=== PATIENT | female | born 1995 | race African-American/Black ===

== ENCOUNTER 2021-12-29 09:23 | Day surgery (SDC) | payer OTHER, SELFPAY ==
[2021-12-29] VITALS (8 sets, daily range): BP systolic 95–108; BP diastolic 49–69; PULSE 65–88; RESP 16–18; TEMP 36.4–37; O2SAT 99–100; BMI 41.3
--- NOTE | ~2021-12-29 | FL_ITS ---
EXAMINATION: FL-GUIDED LUMBAR PUNCTURE CLINICAL INFORMATION: Headache. COMPARISON: None TECHNIQUE: Following explaining fluoroscopy-guided lumbar puncture procedure, benefits and risk, a written consent was obtained. Patient was placed prone on fluoroscopy table and low back area was cleaned and draped in the usual sterile manner. 1% lidocaine was injected at puncture site. A 22-gauge spinal needle was then inserted from a left-sided approach at the L4-L5 disc level and advanced intrathecally. After obtaining CSF return, the patient was quickly placed in left lateral decubitus view and opening CSF pressure was obtained. Fluid was then collected in 4 test tubes. Stylet was reintroduced and needle withdrawn and complete hemostasis achieved at puncture site. Sterile Band-Aid applied postprocedure. Patient tolerated the procedure extremely well. FINDINGS: On visualized single image, there are normal L3, L4 and L5 vertebral heights. The SI joints are symmetrical. Fluoroscopy-guided placement of needle at the L4-L5 disc level. The opening CSF pressure measured 33 cm of water. Approximately 14 mL of clear CSF fluid was collected in 4 test tubes and sent to lab as per referring physician's orders. FLUOROSCOPY TIME: 0.5 minutes DOSE AREA PRODUCT: 7.226 uGy-m2 (microgray-meter squared) FL/FL guided lumbar puncture LP IMPRESSION: Successful ultrasound-guided lumbar puncture performed at the L4-L5 disc level. The CSF pressure is elevated measuring 33 cm/water. Clear CSF was collected in 4 test tubes and sent to lab.
[2021-12-29 10:12] LABS: MANUAL DIFF FLAG NO
[2021-12-29 10:16] LABS: Basophils Percent Auto 0.5 % (0-2); Eosinophils Absolute Auto 0.2 X10*3/uL (0.0-0.4); Eosinophils Percent Auto 2.5 % (0-4); Hematocrit 37.4 % (37.0-47.0); Hemoglobin 12.6 g/dl (12.0-16.0); Imm Gran Abs Auto 0.02 X10*3/uL (0.00-0.03); Imm Gran Pct Auto 0.3 % (0.0-0.4); Lymphocytes Absolute Auto 2.8 X10*3/uL (1.2-4.9); Lymphocytes Percent Auto 46.3 % (20-40); Mean Corpuscular HGB Conc 33.7 g/dl (31.0-35.0); Mean Corpuscular Hemoglobin 24.9 pg (27.0-33.0); Mean Corpuscular Volume 73.8 fL (80.0-98.0); Mean Platelet Volume 10.6 fL (9.4-12.3); Monocytes Absolute Auto 0.6 X10*3/uL (0.1-1.2); Monocytes Percent Auto 10.1 % (2-11); Neutrophils Absolute Auto 2.4 x10*3/uL (2.0-8.3); Neutrophils Percent Auto 40.3 % (45-73); Platelet Count 264 X10*3/uL (160-400); Red Blood Count 5.07 X10*6/uL (4.20-5.50); Red Cell Distribution Width 13.4 % (11.0-16.0)
[2021-12-29 10:20] LABS: UPreg QC Valid YES; Urine Pregnancy NEGATIVE (NEGATIVE)
[2021-12-29 10:24] LABS: Prothrombin Time 11.9 SEC (9.9-13.0)
[2021-12-29 10:27] LABS: Partial Thromboplastin Time 38.7 SEC (24.1-38.0)
[2021-12-29 12:38] LABS: Glucose CSF 60 mg/dL; Total Protein CSF 29.6 mg/dL (15-45)
[2021-12-29 12:43] LABS: CSF Appearance Clear, Colorless; CSF Tube # 1
[2021-12-29 13:24] LABS: Appearance CSF CLEAR; CSF Tube # 3; Color CSF COLORLESS; Red Blood Cell CSF 4 MM*3; White Blood Cell CSF 0 MM*3
== END 2021-12-29 15:00 | disposition home or self-care (01) ==
PROVIDERS: Psychiatry & Neurology Neurology; Radiology Diagnostic Radiology; Visit Provider Radiology Diagnostic Radiology
PROC: 009U3ZZ Drainage of Spinal Canal, Percutaneous Approach (ICD-10-PCS; CPT 62270; principal; 2021-12-29 11:00)
DX: G93.2 Benign intracranial hypertension (principal); G43.909 Migraine, unspecified, not intractable, without status migrainosus; G44.209 Tension-type headache, unspecified, not intractable; M54.50 Low back pain, unspecified; Z79.899 Other long term (current) drug therapy; Z96.1 Presence of intraocular lens; G47.00 Insomnia, unspecified
CPT/HCPCS: 36415; 62328; 81025; 82945; 84157; 85025; 85610; 85730; 87015; 87070; 87205; 89051

== ENCOUNTER 2022-11-19 12:36 | Emergency (ER) | payer OTHER, SELFPAY ==
[2022-11-19 12:45] VITALS: BP 148/60; PULSE 65; RESP 18; TEMP 36.6; O2SAT 98; BMI 43.9
--- NOTE | 2022-11-19 12:46 | ED.RECABL ---
HPI - Recheck/Abnormal Lab/Rx General Chief Complaint: General Medical Stated Complaint: told by [place] [facility] to get bloodwork done Time Seen by Provider: 11/19/22 15:59 Source: patient Mode of arrival: ambulatory Limitations: no limitations History of Present Illness HPI narrative: 26yoF who was seen at [facility] on 's day on 11/17/2021 for sore throat sent home on amoxicillin reports she is feeling better although [facility] called her back today reported that she should go to the closest ER for further evaluation treatment as she had abnormal bacteria on her blood per patient.? She reports her symptoms are improved denies any symptoms at this time. MD complaint: abnormal lab Initial visit (ago): day(s) (2 at [facility] she was seen see above) Symptoms since prior visit: no new symptoms and improved Context: called for abnormal lab result Associated symptoms: none Treatments prior to arrival: given antibiotics on (11/17/2021 and taking as prescribed per patient) Related Data Allergies Allergy/AdvReac Type Severity Reaction Status Date / Time No Known Allergies Allergy Verified 12/29/21 09:55 Review of Systems Review of Systems: Constitutional : No Weight loss, No Fever, No Chills, No Night Sweats, No Fatigue, No Malaise ENT/Mouth : No Hearing loss, No Ear Pain, No Nasal Congestion, No Sinus Pain, No Hoarseness, + improving sore throat, No Rhinorrhea, No Swallowing Difficulty Eyes: No Eye Pain, No Swelling, No Redness, No Foreign Body, No Discharge, No Vision Changes Cardiovascular : No Chest Pain, No SOB, No Dyspnea on Exertion, No Orthopnea, No Edema, No Palpitations Respiratory : No Cough, No Sputum, No Wheezing, No Smoke Exposure, No Dyspnea Gastrointestinal : No Nausea, No Vomiting, No Diarrhea, No Constipation, No abdominal Pain, No Hematochezia, No Melena Genitourinary : no irregular bleeding, No Dysuria, No Urinary Frequency, No Hematuria, No Urinary Incontinence, No Urgency, No Flank Pain, No Urinary Flow Changes, No Hesitancy Musculoskeletal : No joint pain, No Myalgias, No Joint Swelling Skin : No Skin Lesions, No rash Neuro : No Weakness, No Numbness, No Paresthesias, No Loss of Consciousness, No Dizziness, No Headache Psych : No Anxiety/Panic, No Depression, No SI/HI/AH/VH, No Social Issues, Heme/Lymph: No Bruising, No Bleeding,No Lymphadenopathy Endocrine : No Polyuria, No Polydipsia, No Temperature Intolerance Yes all other systems are reviewed and are negative [facility] Past Medical History Attestation statement: The following information was validated with the patient. Source: old records reviewed and nursing notes reviewed Social History Social History Advance Directives: No Physical Exam Vital Signs: Vital Signs: Last Vital Signs Temp 98 F 11/19/22 12:45 Pulse 65 11/19/22 12:45 Resp 18 11/19/22 12:45 BP 148/60 H 11/19/22 12:45 Pulse Ox 98 11/19/22 12:45 O2 Del Method 11/19/22 12:45 BMI result Body Mass Index 43.9 Vital signs reviewed. Blood pressure normal. Pulse normal. Respiration normal. Oxygen normal. Temperature normal. Appearance: Alert. Oriented X3. No acute distress. Head: Normal external exam. Normocephalic. Atraumatic. Eyes: PERRLA. EOMI. Conjunctiva and sclera normal. Eyelids normal. ENT: EAC normal. TM's Normal. Pharynx normal. Uvula midline. Moist mucous membranes. No lesions/ulcerations or masses noted on the tongue. Normal voice. No trismus noted. No drooling noted. No muffled voice noted. Neck: Normal inspection. Neck supple. FROM. No adenopathy. Thyroid Normal. No meningeal signs. CVS: Normal heart rate and rhythm. Heart sound normal. Pulses normal throughout. No murmurs/rales/gallops. Respiratory: No respiratory distress. Painless inspiration. Breath sounds normal. No wheezes/rales/rhonchi noted. Chest nontender. No accessory muscle usage noted or decreased air movement noted. Abdomen: Soft and nontender. Back: Full range of motion noted. Nontender. Skin: Skin warm and dry. Normal skin color. Normal skin turgor. No rashes/lesions/lacerations noted. Extremities: Extremities exhibit normal range of motion and nontender. Neuro: Oriented X 3. No motor deficit. No sensory deficit. Reflexes normal. Normal steady gait. No focal neuro deficits noted. CN's II-XII intact bilaterally? Vascular: + radial pulses. Normal cap refill. No cyanosis noted to upper extremity nails Course Course Course Narrative: RAVI-12:50PM - 26yoF who was seen at [facility] on on 11/17/2021 for sore throat sent home on amoxicillin reports she is feeling better although [facility] called her back today reported that she should go to the closest ER for further evaluation treatment as she had abnormal bacteria on her blood per patient. She reports her symptoms are improved denies any symptoms at this time. On exam patient appears well. Vital signs are stable within normal limits. She is afebrile. Patient reports she is a [employer] worker and has to be out of here and cannot be admitted at this time. And reports she feels better therefore no need for admission at this time. Plan: Will obtain labs, strep culture, COVID/RSV/flu swab, UA and repeat blood cultures. Patient will be sent back to the waiting room to be evaluated in [facility]. Reevaluation(s) Reevaluation #1: Patient with leukocytosis of 17,000. Otherwise all other labs were normal. Patient was still positive for strep. Although she eloped before all her results return. Medical Decision Making Lab Data 11/19/22 13:34 11/19/22 13:34 Labs: Lab Results 11/19/22 11/19/22 11/19/22 Range/Units 13:34 13:34 13:34 WBC 17.2 H (4.8-10.8) X10*3/uL RBC 5.22 (4.20-5.50) X10*6/uL Hgb 13.0 (12.0-16.0) g/dl Hct 38.5 (37.0-47.0) % MCV 73.8 L (80.0-98.0) fL MCH 24.9 L (27.0-33.0) pg MCHC 33.8 (31.0-35.0) g/dl RDW 13.7 (11.0-16.0) % Plt Count 291 (160-400) X10*3/uL MPV 10.4 (9.4-12.3) fL Immature Gran % (Auto) 0.5 H (0.0-0.4) % Neut % (Auto) 63.4 (45-73) % Lymph % (Auto) 27.5 (20-40) % [place] % (Auto) 7.8 (2-11) % Eos % (Auto) 0.4 (0-4) % Baso % (Auto) 0.4 (0-2) % Lymph # (Auto) 4.7 (1.2-4.9) X10*3/uL [place] # (Auto) 1.3 H (0.1-1.2) X10*3/uL Eos # (Auto) 0.1 (0.0-0.4) X10*3/uL Baso # (Auto) 0.1 (0.0-0.2) X10*3/uL Abs Immat Gran (auto) 0.09 H (0.00-0.03) X10*3/uL Absolute Neuts (auto) 10.9 H (2.0-8.3) x10*3/uL Absolute Nucleated RBC 0.000 (0.0-0.012) X10*3/uL Nucleated RBC % (auto) 0.0 (0.0-0.2) /100WBC Sodium 143 (135-145) mmol/L Potassium 4.1 (3.3-5.1) mmol/L Chloride 108 (96-108) mmol/L Carbon Dioxide 25 (22-29) mmol/L Anion Gap 14 (12-20) BUN 12 (9-16) mg/dL Creatinine 0.78 (0.5-1.4) mg/dL Estim Creat Clear Calc 125.9 Estimated GFR > 60 Random Glucose 97 (60-115) mg/dL Calcium 9.3 (8.4-10.2) mg/dL Magnesium 2.0 (1.6-2.6) mg/dL Total Bilirubin 0.2 (0.0-1.0) mg/dL AST 14 (5-31) U/L ALT 13 (0-31) U/L Alkaline Phosphatase 54 (39-117) U/L Total Protein 7.2 (6.5-8.0) g/dL Albumin 3.9 (3.5-5.0) g/dL S. pyogenes GrpA CURTIS Positive A (Negative) Discharge Plan Discharge Clinical Impression: Acute bacterial pharyngitis Patient Disposition: Elopement Interventions: ED Discharge Assessment Last Done: 11/19/22 16:06 Discharge Date/Time: 11/19/22 16:07
[2022-11-19 13:40] LABS: MANUAL DIFF FLAG NO
[2022-11-19 13:42] LABS: Basophils Absolute Auto 0.1 X10*3/uL (0.0-0.2); Basophils Percent Auto 0.4 % (0-2); Eosinophils Absolute Auto 0.1 X10*3/uL (0.0-0.4); Eosinophils Percent Auto 0.4 % (0-4); Hematocrit 38.5 % (37.0-47.0); Imm Gran Abs Auto 0.09 X10*3/uL (0.00-0.03); Imm Gran Pct Auto 0.5 % (0.0-0.4); Lymphocytes Absolute Auto 4.7 X10*3/uL (1.2-4.9); Lymphocytes Percent Auto 27.5 % (20-40); Mean Corpuscular HGB Conc 33.8 g/dl (31.0-35.0); Mean Corpuscular Hemoglobin 24.9 pg (27.0-33.0); Mean Corpuscular Volume 73.8 fL (80.0-98.0); Mean Platelet Volume 10.4 fL (9.4-12.3); Monocytes Absolute Auto 1.3 X10*3/uL (0.1-1.2); Monocytes Percent Auto 7.8 % (2-11); Neutrophils Absolute Auto 10.9 x10*3/uL (2.0-8.3); Neutrophils Percent Auto 63.4 % (45-73); Platelet Count 291 X10*3/uL (160-400); Red Blood Count 5.22 X10*6/uL (4.20-5.50); Red Cell Distribution Width 13.7 % (11.0-16.0); White Blood Count 17.2 X10*3/uL (4.8-10.8)
[2022-11-19 13:49] LABS: IDNOW Serial# 6674DD1D; Strep A Nucleic Acid Positive (Negative)
[2022-11-19 14:08] LABS: Alanine Aminotransferase 13 U/L (0-31); Albumin Level 3.9 g/dL (3.5-5.0); Alkaline Phosphatase 54 U/L (39-117); Anion Gap 14 (12-20); Aspartate Amino Transferase 14 U/L (5-31); Bilirubin Total 0.2 mg/dL (0.0-1.0); Blood Urea Nitrogen 12 mg/dL (9-16); Calcium 9.3 mg/dL (8.4-10.2); Carbon Dioxide 25 mmol/L (22-29); Chloride 108 mmol/L (96-108); Creatinine Clr Calc Pharmacy 125.9; Estimated Glomerular Filt Rate > 60; Glucose Random 97 mg/dL (60-115); Potassium 4.1 mmol/L (3.3-5.1); Sodium 143 mmol/L (135-145); Total Protein 7.2 g/dL (6.5-8.0)
== END 2022-11-19 16:07 | disposition left against medical advice (07) ==
PROVIDERS: Physician Assistant Medical; Emergency Provider Emergency Medicine
DX: J02.8 Acute pharyngitis due to other specified organisms (principal); Z79.899 Other long term (current) drug therapy
CPT/HCPCS: 80053; 83735; 85025; 87651; 99282; 99283

== ENCOUNTER 2023-03-19 16:06 | Emergency (ER) | payer OTHER, SELFPAY ==
[2023-03-19 16:15] VITALS: BP 140/74; PULSE 95; RESP 18; TEMP 36.8; O2SAT 98; BMI 53.0
--- NOTE | 2023-03-19 16:19 | ED_ITS ---
HPI - General Adult General Chief complaint: Ear Problems Stated complaint: ?Ear infection Time Seen by Provider: 03/19/23 16:17 Source: patient Mode of arrival: ambulatory Limitations: no limitations History of Present Illness HPI narrative: Patient is a 27 year old assigned female at with a history of recent left ear infection presenting to the emergency department today with right ear pain. Patient states that she was recently seen and treated for a left sided ear infection however, now her right ear is hurting her. Patient denies any dizziness, lightheadedness, abdominal pain, nausea, vomiting, fever, chills, blurry vision, double vision, loss of vision, chest pain, difficulty breathing, shortness of breath, back pain, night sweats, pain with urination, increased urinary frequency, increased urinary urgency, blood in her urine or stool, syncope or a near syncopal episode, recent trauma or falls, bowel incontinence, bladder incontinence, bowel retention, bladder retention, or any other complain ts at this time. Onset (ago): day(s) Location: right (ear) Radiation: non-radiation Severity: mild Severity scale (1-10): 2 Quality: aching and dull Pain Consistency: constant Relieving factors: none Exacerbating factors: none Associated symptoms: denies other symptoms Treatments prior to arrival: none Related Data Allergies Allergy/AdvReac Type Severity Reaction Status Date / Time No Known Allergies Allergy Verified 12/29/21 09:55 Review of Systems Constitutional: Constitutional: Reports no additional constitutional complaints, Denies chills, Denies fever(s) and Denies night sweats Eyes: Eyes: Reports no additional eye complaints, Denies blurry vision, Denies change in vision, Denies diplopia, Denies eye discharge, Denies loss of vision and Denies eye pain ENT: Denies dizziness Comments: right ear pain Cardiovascular: Cardiovascular: Reports no additional cardiovascular complaints, Denies chest pain, Denies lightheadedness, Denies Loss of Consciousness and Denies dyspnea Respiratory: Respiratory: Reports no additional respiratory complaints and Denies dyspnea Gastrointestinal: Gastrointestinal: Reports no additional gastrointestinal complaints, Denies abdominal pain, Denies melena, Denies hematochezia, Denies change in bowel habits and Denies change in stool character Genitourinary: Genitourinary: Denies hematuria, Denies urinary frequency, Denies dysuria, Denies urinary incontinence, Denies urinary hesitancy and Denies urinary urgency Musculoskeletal: Musculoskeletal: Reports no additional musculoskeletal complaints, Denies numbness and Denies tingling Neurologic: Denies dizziness, Denies loss of vision, Denies numbness and Denies tingling Psychiatric: Psychiatric: Reports no additional psychiatric complaints Endocrine: Endocrine: Reports no additional endocrine complaints Hematologic/Lymphatic: Hematologic/Lymphatic: Reports no additional hematologic/lymphatic complaints Allergic/Immunologic: Allergic/Immunologic: Reports no additional allergic/immunologic complaints PMFSH Past Medical History Attestation statement: The following information was validated with the patient. Source: old records reviewed and nursing notes reviewed Social History Social History Advance Directives: No Advance Directives Information Provided: No Physical Exam ED Vital Signs: Vital Signs - 24 hr 03/19/23 16:15 Temperature 98.3 F Pulse Rate 95 Respiratory Rate 18 Blood Pressure 140/74 H Pulse Oximetry 98 Oxygen Delivery Method Room Air BMI result Body Mass Index 53.0 Const General: cooperative, no acute distress, alert and awake Nutritional Appearance: well nourished Orientation/consciousness: patient oriented x3 Limitations: no limitations HENMT Head: Yes normal to inspection and Yes atraumatic Ears: hearing grossly normal bilaterally, external ears normal and TM's normal bilaterally General nose exam: Normal external nose present, no nasal discharge noted and no epistaxis Face and sinus: Yes normal facial exam, No abrasion and No laceration Mouth: Normal oral and palatal mucosa present, no drooling and no muffled voice Eyes General: appearance normal, both eyes and all related structures Periorbital: periorbital findings normal Eyelids: Yes eyelids normal Conjunctivae: conjunctivae normal Pupils: Equal, round and reactive pupils present EOM: EOMs intact bilaterally Neck Neck: Yes normal visual inspection, Yes full ROM and Yes no lymphadenopathy Chest Chest palpation & inspection: normal inspection of the chest Resp Effort & Inspection: normal respiratory effort and able to speak in complete sentences GI Inspection: Yes normal to inspection Neuro General: patient oriented x3 and moves all extremities Cranial nerves: Yes Equal, round and reactive pupils present Cognition (Neuro): normal cognition Motor exam (neuro): 5/5 motor strength present throughout Sensory Exam: Normal double simultaneous stimulation for sensation Coordination: [id number] test normal Extrem General: Yes normal to inspection, Yes full ROM and Yes capillary refill normal Psych Appearance: grossly normal Mental Status: mental status grossly normal Affect: normal affect Attitude: cooperative Thought process: Normal thought process present Thought content: Normal thought content present Insight: Good insight present (Psych) Medical Decision Making Medical Decision Making MDM Narrative: Patient is a 27 year old assigned female at with a history of recent left ear infection presenting to the emergency department today with right ear pain. Patient's physical exam was unremarkable. I explained my physical exam findings to the patient . I answered all questions asked by the patient. I stressed the importance of the patient taking her medication as prescribed. I stressed the importance of the patient following up with her primary care provider and if her symptoms continue after completion of her previously prescribed antibiotics, an ENT. I stressed the importance of the patient returning to the emergency department immediately if her symptoms were to worsen or if she were to develop any dizziness, shortness of breath, difficulty breathing, chest pain, blurry vision, loss of vision, nausea, vomiting, abdominal pain, fever, chills, back pain, or any other complaints. Patient verbalized agreement and understanding with this treatment plan and discharge. Differential Diagnosis Differential Diagnoses: The differential diagnosis associated with the presentation includes ear pain Discharge Plan Discharge Clinical Impression: Ear pain Patient Disposition: Home, Self-Care Instructions: Earache (ED) Additional Instructions: Follow up with your primary care provider. Return to the emergency department immediately if your symptoms worsen or if you develop any dizziness, shortness of breath, difficulty breathing, chest pain, blurry vision, loss of vision, nausea, vomiting, abdominal pain, fever, chills, back pain, or any other complaints. Referrals: [facility] [place] [facility]] (Call to establish and follow up with a primary care provider. If you already have a primary care provider, please follow up with them.) [facility] [[facility]] (Call to establish and follow up with a primary care provider. If you already have a primary care provider, latrice chowdhury follow up with them.) [facility] [Provider [facility]] (Call to establish and follow up with a primary care provider. If you already have a primary care provider, please follow up with them.) Eren Conrad [Physician] - (Call to establish and follow up with an ENT.) Stand Alone Forms: Work/School Release Interventions: ED Discharge Assessment Last Done: 03/19/23 17:02 Discharge Date/Time: 03/19/23 17:02 Print Language: [place]
== END 2023-03-19 17:02 | disposition home or self-care (01) ==
PROVIDERS: Emergency Provider Student in an Organized Health Care Education/Training Program
DX: H92.02 Otalgia, left ear (principal)
CPT/HCPCS: 99282; 99283